=== PATIENT | female | born 1990 | race Caucasian/White ===

== ENCOUNTER 2022-12-03 17:20 | Outpatient (CLI) | payer BC, SELFPAY ==
[2022-12-03 21:19] LABS: Cholesterol* 180 mg/dL (90-199); Glucose* 75 mg/dL (60-115)
[2022-12-03 21:20] LABS: HDL Cholesterol* 80 mg/dL (>=50); LDL Cholesterol Calculated 86 mg/dL (<100); Triglycerides* 71 mg/dL (40-149)
== END 2022-12-03 17:21 | disposition home or self-care (01) ==
PROVIDERS: PCP Family Medicine; Visit Provider Registered Nurse
DX: Z01.419 Encounter for gynecological examination (general) (routine) without abnormal findings (principal); R00.2 Palpitations; Z13.1 Encounter for screening for diabetes mellitus; Z13.6 Encounter for screening for cardiovascular disorders
CPT/HCPCS: 80061; 82947; 84443

== ENCOUNTER 2023-07-08 12:53 | Outpatient (CLI) | payer BC, SELFPAY ==
--- NOTE | 2023-07-08 13:00 | CRLHL7_ITS ---
For Patients: As a result of the Cures Act, medical imaging exams and procedure reports are released immediately into your electronic medical record. You may view this report before your referring provider. If you have questions, please contact your health care provider. INDICATION: First trimester scan, establish dates. COMPARISON: None. TECHNIQUE: Real-time terrazas-scale imaging of the pelvis was performed. FINDINGS: Sonographic imaging demonstrates a single living intrauterine gestation. The embryo demonstrates a regular cardiac rate measuring 167 beats per minute. The embryo`s crown-rump length measurement of 2.8 cm corresponds to a gestational age of 9 weeks 4 days with a sonographic due date of 02/06/2024. There is a normal-appearing yolk sac. There are no gross abnormalities noted within the embryo at this early state of development. The gestational sac has a normal appearance. There is no evidence of a perigestational hemorrhage. The amount of fluid within the sac appears appropriate for gestational age. The cervix is closed. The myometrium appears normal. The ovaries are of normal size. There are no suspicious fluid collections noted in the cul-de-sac. IMPRESSION: Normal first trimester OB ultrasound exam. Gestational age calculated at 9 weeks 4 days with a sonographic due date of 02/06/2024. Dictated by Kodi Cummings MD @ 07/08/2023 1:46:14 PM (Electronically Signed)
== END 2023-07-08 12:54 | disposition home or self-care (01) ==
LOC: US 12:54
PROVIDERS: PCP Family Medicine; Visit Provider Registered Nurse
DX: Z34.91 Encounter for supervision of normal pregnancy, unspecified, first trimester (principal); Z3A.09 9 weeks gestation of pregnancy
CPT/HCPCS: 76817; 86703; 86803; 86850; 86900; 86901; 87086; 87340; 87491; 87591

== ENCOUNTER 2023-07-08 14:59 | Outpatient (CLI) | payer BC, SELFPAY | END 2023-07-08 15:00 | disposition home or self-care (01) | LOC: NFLDREF 07-10 09:01 | PROVIDERS: PCP Family Medicine; Referring Provider Family Medicine; Visit Provider Registered Nurse | DX: Z34.91 Encounter for supervision of normal pregnancy, unspecified, first trimester (principal) | CPT/HCPCS: 86592; 86703; 86762; 86787; 86803; 86850; 86900; 86901; 87086; 87340; 87491; 87591 ==

== ENCOUNTER 2023-09-30 14:01 | Outpatient (CLI) | payer BC, SELFPAY ==
--- NOTE | 2023-09-30 14:00 | CRLHL7_ITS ---
For Patients: As a result of the Century Cures Act, medical imaging exams and procedure reports are released immediately into your electronic medical record. You may view this report before your referring provider. If you have questions, please contact your health care provider. INDICATION: Evaluate anatomy. COMPARISON: 07/08/2023 TECHNIQUE: Real time terraazs scale imaging of the fetus was performed as well as color Doppler analysis of the umbilical vessels. FINDINGS: Sonographic imaging demonstrates a single living intrauterine gestation. Fetus demonstrates a regular cardiac rate of 155 beats per minute. Fetus has a longitudinal breech position. The placenta lies posteriorly without evidence of placenta previa. The edge of the placenta is located 6.6 cm from the internal cervical os. Amniotic fluid volume appears normal. Single deepest vertical pocket: 3.7 cm. The cervix is closed and measures 3.7 cm in length. The composite ultrasound gestational age is calculated at 22 weeks 0 days with an estimated sonographic due date of 02/03/2024. The estimated weight is 448 grams which lies at the 70th %. The following biometric measurements were obtained: Biparietal diameter: 5.3 cm/22 weeks 1 day 80th% Head circumference: 19.8 cm/22 weeks 0 days 71st% Abdominal circumference: 16.5 cm/21 weeks 4 days 52nd% Femur length: 3.7 cm/21 weeks 6 days 61st% The HC/AC ratio measures: 1.20 range (1.06-1.23) On anatomic survey, there is a normal appearance of the cerebral ventricles, cavum septi pellucidi, cisterna magna and cerebellum. The nose, lips, and facial profile appear normal. The cervical, thoracic and lumbar spine are well visualized and appear normal. There is a normal four-chamber heart view and the left and right ventricular outflow tracts appear normal. The diaphragm and stomach appear normal. The kidneys and bladder also appear normal. There is a normal three-vessel cord and cord insertion site. The four extremities appear normal. IMPRESSION: Normal OB ultrasound exam with concordance of clinical and sonographic dating. No intrinsic abnormalities noted on anatomic survey. Dictated by Kodi Cummings MD @ 10/02/2023 8:53:46 AM (Electronically Signed)
== END 2023-09-30 14:02 | disposition home or self-care (01) ==
LOC: US 14:02
PROVIDERS: PCP Family Medicine; Visit Provider Registered Nurse
DX: Z34.92 Encounter for supervision of normal pregnancy, unspecified, second trimester (principal); Z3A.22 22 weeks gestation of pregnancy
CPT/HCPCS: 76805

== ENCOUNTER 2023-11-18 10:03 | Outpatient (CLI) | payer BC, SELFPAY | END 2023-11-18 10:04 | disposition home or self-care (01) | LOC: NFLDREF 11-20 07:53 | PROVIDERS: PCP Family Medicine; Referring Provider Family Medicine; Visit Provider Obstetrics & Gynecology | DX: Z34.93 Encounter for supervision of normal pregnancy, unspecified, third trimester (principal); Z3A.28 28 weeks gestation of pregnancy | CPT/HCPCS: 86592 ==

== ENCOUNTER 2023-12-02 13:56 | Outpatient (CLI) | payer BC, SELFPAY ==
--- NOTE | 2023-12-02 13:59 | CRLHL7_ITS ---
For Patients: As a result of the Century Cures Act, medical imaging exams and procedure reports are released immediately into your electronic medical record. You may view this report before your referring provider. If you have questions, please contact your health care provider. INDICATION: Small for gestational age TECHNIQUE: Limited transabdominal two-dimensional terrazas-scale ultrasound examination. COMPARISON: 09/30/2023 and 07/08/2023 FINDINGS: There is a living fetus with gestational age of 30 weeks 2 days by LMP and 32 weeks 6 days by today`s measurements. EDC based on LMP is 02/08/2024. BPD: 8.4 cm, 33 weeks 6 days Head circumference: 29.9 cm, 33 weeks 1 day Abdominal circumference: 29.4 cm, 33 weeks 3 days Femur length: 6.0 cm, 31 weeks 1 day The weight is estimated at 2049 grams, greater than the 97th percentile. The heart rate is measured at 152 beats per minute and the rhythm appears regular. The amniotic fluid volume is within normal limits with single deepest pocket of 4.6 cm. The placenta is anterior and superior to the cervical os. There is no evidence of previa. IMPRESSION: 1. Living fetus with gestational age of 30 weeks 2 days by LMP and 32 weeks 6 days by today`s measurements. EDC based on LMP is 02/08/2024. 2. weight estimated at 2049 grams, greater than the 97th percentile. Dictated by Santos Ortiz MD @ 12/04/2023 1:14:26 PM (Electronically Signed)
== END 2023-12-02 13:57 | disposition home or self-care (01) ==
LOC: US 13:57
PROVIDERS: PCP Family Medicine; Visit Provider Obstetrics & Gynecology
DX: O36.5930 Maternal care for other known or suspected poor fetal growth, third trimester, not applicable or unspecified (principal); Z3A.30 30 weeks gestation of pregnancy
CPT/HCPCS: 76816

== ENCOUNTER 2024-01-12 11:00 | Outpatient (CLI) | payer BC, SELFPAY | END 2024-01-12 11:01 | disposition home or self-care (01) | LOC: NFLDREF 01-13 13:58 | PROVIDERS: PCP Family Medicine; Referring Provider Family Medicine; Visit Provider Obstetrics & Gynecology | DX: Z34.90 Encounter for supervision of normal pregnancy, unspecified, unspecified trimester (principal) | CPT/HCPCS: 76816; 87081; 87653 ==

== ENCOUNTER 2024-01-23 11:18 | Outpatient (CLI) | payer BC, SELFPAY ==
[2024-01-23 11:31] VITALS: PULSE 93; O2SAT 99
[2024-01-23 11:32] VITALS: BP 135/70; PULSE 103
[2024-01-23 11:34] VITALS: BP 115/58; PULSE 92
--- NOTE | 2024-01-23 14:48 | PC.OBNST ---
NST Note NST Note Start: 01/23/24 11:54 Freq: ONCE Status: Discharge Protocol: Document 01/23/24 14:47 [facility] (Rec: 01/23/24 14:48 [facility] [id number]) NST Note 4 Para (# of births) 2 EDC 02/12/24 Gestational Age In Weeks & Days 37 Weeks & 1 Days Patient Presented with Complaint(s) of Contractions/cramping Reactive Yes Appropriate for Gestational Age Yes ARA Saravia RN Date 01/23/24 Reactive Yes Appropriate for Gestational Age Yes ARA Duckworth RN Date 01/23/24 OB NST charge Yes Complete NST Note via Write Note Yes The provider's electronic signature indicates the NST is reactive/appropriate for gestational age. *Note to provider: If an addendum is required, open the patient's chart and click on the note under the Nurse/Allied Health tab.
== END 2024-01-23 14:20 | disposition home or self-care (01) ==
LOC: OB OUT 11:18 → OB 11:19
PROVIDERS: PCP Family Medicine; Visit Provider Obstetrics & Gynecology
DX: O47.1 False labor at or after 37 completed weeks of gestation (principal); Z3A.37 37 weeks gestation of pregnancy
CPT/HCPCS: 59025; G0463

== ENCOUNTER 2024-02-01 13:39 | Inpatient (IN) | payer BC, OTHER, SELFPAY ==
[2024-02-01] VITALS (52 sets, daily range): BP systolic 100–157; BP diastolic 51–112; PULSE 78–116; RESP 16; TEMP 36.8–37.6; O2SAT 98–100; BMI 25.4
--- NOTE | 2024-02-01 12:52 | W.PM.LDBA ---
Subjective History of Present Illness Narrative: Patient is being admitted to Labor and Delivery for early labor. She is a 33 year old -0-1-2 woman at 39 0/7 weeks' gestation. She was awakened by contractions throughout the night last night. These were strong but infrequent, and are currently around 10 minutes apart. She did vomit once, but is now hungry. Exam at presentation was / -1 per RN. Her full history and physical was dictated by Dr. Craft on 01/19/24. Please see this for details. Specific Issues/Plans G 4 P 2011 H&P done 01/19/[address] Craft : José Manuel [employer]!!!!! HISTORY OF FAST LABORS, WAS SENT HOME AT 4CM HAD TO COME BACK RIGHT AWAY, KEEP UNDER OBSERVATION LONGER!!! 1. History of benign heart murmur 2. Headaches: Recommend magnesium supplement and Reglan. 3. 3rd degree laceration with second baby 03/07/22 4. Suspected macrosomia. Requests elective IOL if no labor by 39 weeks. -Measuring smaller than dates (she hides this baby very well) -Growth ultrasound at 30 weeks: EFW >97%tile!!!, AC>97%tile, BPD >97%tile -Growth ultrasound at 36 weeks: EFW 3503 g = 97%, BPD and AC > 97%, HC 96%, FL 17%. Cephalic, SDP 3.4. 5. Anemia -10.6 > 10.9 on 12/16 after iron. Encouraged continued use, I would not advise iron infusion at this time COVID: Vaccinated and boosted, not current with booster at this point. Recommended. Flu Vaccine: Declined 08-26-23 RSV:declines tdap: declines Covid infection: 11/09/23 OB - Problem Based A/P Additional Plan (1) Anemia affecting : Status: Acute (2) : Status: Acute Plan: Early labor at 39 weeks, 0 days gestation. History of rapid labor. Suspected macrosomia. Plan Patient requests epidural for pain control. Otherwise expectant management. Anticipate . Delivery/Labor/Induction Plan Plan: expectant management OB Result Labs GBS Status: negative OB Exam Physical Exam Vital signs: Temp Pulse Resp BP Pulse Ox 98.3 F 86 16 120/74 98 02/01/24 11:19 03/10/24 11:19 02/01/24 11:19 02/01/24 11:19 02/01/24 11:16 Narrative: Physical exam: General: No acute distress Psych: Alert and oriented x3, full affect HEENT: Normocephalic, atraumatic Heart: Regular rate and rhythm, no murmur rub or gallop Lungs: Clear to auscultation bilaterally Abdomen: Soft, nontender, gravid, cephalic lie Lower extremities: No edema or erythema Pelvic exam: Cervical exam per rn at time of 1st evaluation is 3, 70%, and-1 station. Repeat exam now is 5-6 / 95 / +2, bulging bag. tracing: Baseline 135, accelerations present, no decelerations, moderate variability.
[2024-02-01] MEDS: LACTATED RINGERS 1000 ML 1,000 ML 1200 ML IV ×2 (13:50→14:43)
[2024-02-01 13:58] LABS: Basophils Percent Auto 0.3 % (0.0-3.0); Eosinophils Percent Auto 0.2 % (0.0-7.0); Hemoglobin* 12.4 gm/dL (12.0-16.0); Immature Granulocytes Pct Auto 0.1 %; Lymphocytes Percent Auto 10.6 % (20-44); Mean Corpuscular HGB Conc 34 gm/dL (32-36); Mean Corpuscular Hemoglobin 28 pg (26-34); Mean Corpuscular Volume 84 fL (80-100); Monocytes Percent Auto 4.2 % (0.0-11.0); Neutrophils Percent Auto 84.6 % (42.0-72.0); Platelet Count* 181 K/uL (140-440); RDW Coefficient of Variation % 13.2 % (11.5-15.5); Red Blood Count 4.41 m/uL (4.00-5.20); White Blood Count* 13.73 K/uL (4.50-11.00)
[2024-02-01 14:08] LABS: Slide Review Reflex No
[2024-02-01] MEDS: ROPIVACAINE 0.2% 100 ml 100 ML 12 MG EPIDURAL (14:40)
[2024-02-01] MEDS: LIDOCAINE 2% (PF) 5 ML VIAL EPIDURAL (14:40)
--- NOTE | 2024-02-01 14:45 | P.ANBPRC_ITS ---
[facility] Medical History Spontaneous vaginal delivery ?O80 - Encounter for full-term uncomplicated delivery (ICD-10) Functional heart murmur ?R01.0 - Benign and innocent cardiac murmurs (ICD-10) Dyspareunia due to non-psychogenic cause in female ?N94.10 - Unspecified dyspareunia (ICD-10) Surgical History History of colposcopy with cervical biopsy (05/18/18) ?Z98.890 - Other specified postprocedural states (ICD-10) Family History Maternal Grandmother Breast cancer Depression Mother Depression Diabetes Miscarriage High blood pressure Sister Depression Brother GERD (gastroesophageal reflux disease) Father High blood pressure Paternal Grandfather High blood pressure Myocardial infarction Maternal Grandfather Lymphoma Cancer of mouth Diabetes Depression Uncle Cancer of liver Throat cancer Social History What is your current living situation?: I presently have a place to live Problems where you live: no known problems In the past 12 months, utilities in danger of being shut off: no In past 12 months, lack of transportation kept you from medical appts, meetings, work, or getting things needed for daily living: no In the past 12 mos, have been you worried that your food would run out before you had money to buy more?: never true In the past 12 mos, the food you bought just didn't last and you didn't have money to buy more?: never true Smoking Status: Never smoker How often does anyone, including family, friends and others, physically hurt you : never How often does anyone, including family, friends and others, insult or talk down to you: never How often does anyone, including family, friends and others, threaten you with harm: never How often does anyone, including family, friends and others, scream or curse at you: never Little interest or pleasure in doing things: not at all Feeling down, depressed, or hopeless: not at all Meds Home Medications and Allergies Home Medications Medication Instructions Recorded Confirmed Type Ejnhg-Vaptdv-Wxt-Rktts-Yjllk-xqgebjjk 1 cap PO DAILY 12/03/22 02/01/24 History 40 billion cell-[address] (MVW Complete Formulation Probiotic) prenat.vits,andrey,vby-ypem-dtkwb 1 tab PO QDAY 12/03/22 02/01/24 History acetaminophen 500 mg tablet 1,000 mg PO Q6H PRN 08/05/23 02/01/24 History (Tylenol Extra Strength) multivitamin with iron (Daily 1 tab PO QDAY 12/02/23 02/01/24 History Vitamin with Iron tablet) famotidine 10 mg tablet (Pepcid AC) 10 mg PO QDAY 12/16/23 02/01/24 History Allergies Allergy/AdvReac Type Severity Reaction Status Date / Time No Known Drug Allergies Allergy Verified 02/01/24 11:32 Results Labs Labs: Laboratory Results - last 24 hr 02/01/24 13:45 WBC 13.73 H RBC 4.41 Hgb 12.4 Hct 37.0 MCV 84 MCH 28 MCHC 34 RDW Coeff of [place] 13.2 Plt Count 181 Neut % (Auto) 84.6 H Lymph % (Auto) 10.6 L [place] % (Auto) 4.2 Eos % (Auto) 0.2 Baso % (Auto) 0.3 Neut # (Auto) 11.60 H Lymph # (Auto) 1.50 [place] # (Auto) 0.60 Eos # (Auto) 0.00 Baso # (Auto) 0.00 Abs Immat Gran (auto) 0.00 Imm/Tot Granulo (auto) 0.1 Vital Signs Vital Signs: Last Vital Signs Temp 98.3 F 02/01/24 13:34 Pulse 85 02/01/24 14:42 Resp 16 02/01/24 13:34 BP 115/59 L 02/01/24 14:42 Pulse Ox 100 02/01/24 14:34 Anesthesia Procedures Epidural Insertion Patient Location: OB Start Time: 14:00 Stop Time: 14:30 Start Date: 02/01/24 Stop Date: 02/01/24 Reason for Block: procedure for pain Patient Position: sitting Performed By: Felix Bautista Preanesthetic Checklist: IV checked, risks and benefits discussed, monitors and equipment checked, pre-op evaluation, timeout performed and anesthesia consent Prep: chlorhexidine gluconate Monitoring: blood pressure monitoring, continuous pulse oximetry and heart rate Approach: midline Vertebral Space: lumbar (1-5) Epidural Technique: GABRIELA saline Needle Type: Tuohy needle Injection Technique: continuous catheter Needle gauge: 17 Needle Length (cm): 10 cm Needle Insertion Depth (cm): 6 Catheter Gauge: 19 Catheter Type: multi-orifice Catheter at skin depth (cm): 12 Test Dose Result: negative and lidocaine 1.5% with epinephrine 1 to 200,000
[2024-02-01] MEDS: LACTATED RINGERS 1000 ML 1,000 ML 125 ML IV (15:25)
--- NOTE | 2024-02-01 15:59 | PM.OBPNL ---
Subjective Time Seen by Provider: 03:55 Date Seen: 02/01/24 Narrative: Elizabeth is a 33 yo V4B9-1-3-3 woman at 39 0/7 weeks' gestation who presented in labor. She had an epidural since our last exam. She is comfortable. Occasionally feels pelvic pressure. Objective Exam: Gen - NAD Cervical exam - 6.5 / 100 / +2 SROM on exam, clear fluid Vital Signs: Last Vital Signs Temp 98.3 F 02/01/24 13:34 Pulse 102 H 02/01/24 15:55 Resp 16 02/01/24 13:34 BP 109/59 L 02/01/24 15:55 Pulse Ox 100 02/01/24 14:34 Comments: tracing: Baseline 135 / accelerations present / isolated late deceleration and intermittent brief variable decelerations / moderate variability. Contractions Contraction Frequency: Q3-4 min Assessment Assessment: active labor Amniotic Membrane Status: SROM Status: Category ll Tracing Comments: Overall reassuring Labor Progress: Active labor Maternal Status: Stable Plan Plan: Expectant management. Anticipate .
[2024-02-01] MEDS: OXYTOCIN 30 unit/500 ML in NS 30 UNIT/500 ML BAG 325 UNIT IVPB (16:42)
--- NOTE | 2024-02-01 16:43 | W.PM.VAGDEL1 ---
Procedure Procedure Done: [facility] Procedure Details: The patient is a 33 year-old G 4 P 2-0-1-2 woman admitted on 02/01/2024 at 39 Weeks, 0 Days gestation for labor.? Cervical exam on admission was 3 cm/7 % effaced/-1 station with membranes intact in vertex presentation.? Contractions were every 10 minutes.? heart rate demonstrated baseline 135 bpm with moderate variability, positive accelerations, no decelerations; a category 1 tracing.? ? Labor Analgesia:? Epidural ? Pitocin:? No ? Labor onset:? 1:31 PM SROM occurred at 3:56 PM with clear fluid. ? Complete:? 4:25 p.m. ? Pushing:? 4:27 p.m. ? heart tones during second stage were reassuring. ? At 4:28 p.m. a viable female delivered in vertex OA presentation over small second-degree perineal laceration via spontaneous vaginal delivery.? Elizabeth pushed over the course of only 1 contraction. was placed on maternal abdomen.? Cord was clamped and cut after it ceased to pulse.? Nose and mouth were bulb suctioned.? weight pending.? 8 at 1 minute and 8 at 5 minutes.? Shoulder dystocia: No.? Nuchal cord: No. ? Placenta delivered spontaneously and complete at 4:32 p.m. with a 3 vessel cord. ? Mother was stable after delivery. required CPAP initially. ? Lacerations:? Small second-degree perineal laceration, repaired with running suture of 3-0 Vicryl. ? Blood loss: 100 mL. Blood loss measurement type: QBL ? Sponge and needles counts are correct.
[2024-02-01] MEDS: NIFEdipine 30 MG TAB.ER.24 PO (19:32)
[2024-02-01 19:37] LABS: Hemoglobin* 12.2 gm/dL (12.0-16.0); Mean Corpuscular HGB Conc 33 gm/dL (32-36); Mean Corpuscular Hemoglobin 28 pg (26-34); Mean Corpuscular Volume 86 fL (80-100); Platelet Count* 177 K/uL (140-440); Red Blood Count 4.33 m/uL (4.00-5.20); White Blood Count* 17.06 K/uL (4.50-11.00)
[2024-02-01 19:44] LABS: Slide Review Reflex No
[2024-02-01 19:52] LABS: Alanine Aminotransferase* 16 U/L (4-35); Aspartate Amino Transferase* 22 U/L (12-35); Blood Urea Nitrogen* 10 mg/dL (5-24); Creatinine* 0.5 mg/dL (0.5-1.5); Est. Creatinine Clearance* 159.93; Estimated Glomerular Filt Rate 126 ml/min
[2024-02-02 00:31] VITALS: BP 121/64; PULSE 82; RESP 16; TEMP 36.7; O2SAT 96
[2024-02-02 03:50] VITALS: BP 112/68; PULSE 88; RESP 16; TEMP 36.6; O2SAT 97
[2024-02-02 05:57] LABS: Hematocrit 36.9 % (33.0-51.0); Hemoglobin* 12.1 gm/dL (12.0-16.0); Mean Corpuscular HGB Conc 33 gm/dL (32-36); Mean Corpuscular Hemoglobin 28 pg (26-34); Mean Corpuscular Volume 85 fL (80-100); Platelet Count* 161 K/uL (140-440); Red Blood Count 4.35 m/uL (4.00-5.20); White Blood Count* 14.31 K/uL (4.50-11.00)
[2024-02-02 05:59] LABS: Slide Review Reflex No
[2024-02-02 06:11] LABS: Creatinine* 0.4 mg/dL (0.5-1.5); Est. Creatinine Clearance* 199.91; Estimated Glomerular Filt Rate 133 ml/min
[2024-02-02 06:12] LABS: Alanine Aminotransferase* 15 U/L (4-35); Aspartate Amino Transferase* 23 U/L (12-35); Blood Urea Nitrogen* 7 mg/dL (5-24)
[2024-02-02] MEDS: ACETAMINOPHEN 500 MG TABLET 1000 MG PO (07:29)
[2024-02-02 07:33] VITALS: BP 122/71; PULSE 83; RESP 12; TEMP 36.3
--- NOTE | 2024-02-02 07:52 | PM.OBDSVD1 ---
DS: Providers Provider Date Seen: 02/02/24 Date of admission: 02/01/24 13:39 Primary care physician: Lian Faust DO Admitting Clinician: Juli Jimenez MD Attending Physician on discharge: Juli Jimenez MD Date of Discharge: 02/02/24 DS: Diagnosis Discharge Diagnosis (1) Lactating mother: Status: Acute (2) care following vaginal delivery: Status: Acute (3) Gestational hypertension with significant proteinuria, delivered: Status: Acute Exam Narrative: Exam Narrative: GENERAL APPEARANCE:? normal affect, alert, no distress? MOOD:? appropriate? CHEST:? clear to auscultation and percussion? HEART:? regular rate and rhythm? ABDOMEN:? soft, non-tender the uterine fundus is U/2 and is appropriate for the stage of recovery.? PERINEUM:? mild edema of the perineum, there is a 2nd degree laceration that is healing well.? EXTREMITIES:? normal and no edema? Patient has no complaints? No active bleeding?? Doing well? She is requesting discharge home.? Const: Vital Signs, click to edit/add: Vital Signs - 24 hr 02/01/24 11:16 02/01/24 11:19 02/01/24 13:34 Temperature 98.3 F 98.3 F Pulse Rate 86 95 Pulse Rate [Pulse Oximeter] Respiratory Rate 16 16 Blood Pressure 120/74 148/76 H Blood Pressure [Ri ght Arm] Pulse Oximetry 98 Oxygen Delivery Me thod 02/01/24 13:50 02/01/24 14:04 02/01/24 14:09 Temperature Pulse Rate 99 Pulse Rate [Pulse Oximeter] Respiratory Rate Blood Pressure 135/77 Blood Pressure [Ri ght Arm] Pulse Oximetry 100 100 Oxygen Delivery Me thod 02/01/24 14:12 02/01/24 14:14 02/01/24 14:16 Temperature Pulse Rate 88 86 96 Pulse Rate [Pulse Oximeter] Respiratory Rate Blood Pressure 122/67 122/67 118/64 Blood Pressure [Ri ght Arm] Pulse Oximetry 100 Oxygen Delivery Me thod 02/01/24 14:18 02/01/24 14:19 02/01/24 14:20 Temperature Pulse Rate 97 96 Pulse Rate [Pulse Oximeter] Respiratory Rate Blood Pressure 126/68 125/65 Blood Pressure [Ri ght Arm] Pulse Oximetry 100 Oxygen Delivery Me thod 02/01/24 14:22 02/01/24 14:24 02/01/24 14:26 Temperature Pulse Rate 100 85 109 H Pulse Rate [Pulse Oximeter] Respiratory Rate Blood Pressure 125/62 118/57 L 114/57 L Blood Pressure [Ri ght Arm] Pulse Oximetry 100 Oxygen Delivery Nd thod 02/01/24 14:28 02/01/24 14:29 02/01/24 14:30 Temperature Pulse Rate 103 H 100 Pulse Rate [Pulse Oximeter] Respiratory Rate Blood Pressure 112/59 L 103/55 L Blood Pressure [Ri ght Arm] Pulse Oximetry 100 Oxygen Delivery Nd thod 02/01/24 14:32 02/01/24 14:34 02/01/24 14:36 Temperature Pulse Rate 79 93 86 Pulse Rate [Pulse Oximeter] Respiratory Rate Blood Pressure 109/62 100/51 L 113/57 L Blood Pressure [Ri ght Arm] Pulse Oximetry 100 Oxygen Delivery Nd thod 02/01/24 14:38 02/01/24 14:40 02/01/24 14:42 Temperature Pulse Rate 85 81 85 Pulse Rate [Pulse Oximeter] Respiratory Rate Blood Pressure 117/58 L 114/60 115/59 L Blood Pressure [Ri ght Arm] Pulse Oximetry Oxygen Delivery Nd thod 02/01/24 14:44 02/01/24 14:49 02/01/24 14:55 Temperature 98.4 F Pulse Rate 89 86 Pulse Rate [Pulse Oximeter] Respiratory Rate 16 Blood Pressure 125/58 L 116/56 L Blood Pressure [Ri ght Arm] Pulse Oximetry Oxygen Delivery Nd thod 02/01/24 14:59 02/01/24 15:04 02/01/24 15:09 Temperature Pulse Rate 89 88 85 Pulse Rate [Pulse Oximeter] Respiratory Rate Blood Pressure 124/59 L 108/51 L 108/52 L Blood Pressure [Ri ght Arm] Pulse Oximetry Oxygen Delivery Nd thod 02/01/24 15:14 02/01/24 15:20 02/01/24 15:24 Temperature Pulse Rate 86 79 86 Pulse Rate [Pulse Oximeter] Respiratory Rate Blood Pressure 104/51 L 116/59 L 108/56 L Blood Pressure [Ri ght Arm] Pulse Oximetry Oxygen Delivery Nd thod 02/01/24 15:40 02/01/24 15:55 02/01/24 16:18 Temperature 98.4 F Pulse Rate 78 102 H 90 Pulse Rate [Pulse Oximeter] Respiratory Rate 16 Blood Pressure 105/54 L 109/59 L 115/59 L Blood Pressure [Ri ght Arm] Pulse Oximetry Oxygen Delivery Nd thod 02/01/24 16:25 02/01/24 16:40 02/01/24 16:40 Temperature Pulse Rate 109 H 88 Pulse Rate [Pulse Oximeter] Respiratory Rate 16 Blood Pressure 128/60 129/63 Blood Pressure [Ri ght Arm] Pulse Oximetry Oxygen Delivery Nd thod 02/01/24 16:55 02/01/24 16:55 02/01/24 17:10 Temperature Pulse Rate 112 H 97 Pulse Rate [Pulse Oximeter] Respiratory Rate 16 Blood Pressure 126/66 131/69 Blood Pressure [Ri ght Arm] Pulse Oximetry Oxygen Delivery Nd thod 02/01/24 17:10 02/01/24 17:25 02/01/24 17:25 Temperature 99.6 F Pulse Rate 101 H Pulse Rate [Pulse Oximeter] Respiratory Rate 16 16 Blood Pressure 137/81 Blood Pressure [Ri ght Arm] Pulse Oximetry Oxygen Delivery Nd thod 02/01/24 17:40 02/01/24 17:40 02/01/24 17:55 Temperature Pulse Rate 108 H 96 Pulse Rate [Pulse Oximeter] Respiratory Rate 16 Blood Pressure 150/80 H 134/63 Blood Pressure [Ri ght Arm] Pulse Oximetry Oxygen Delivery Nd thod 02/01/24 17:55 02/01/24 18:10 02/01/24 18:10 Temperature Pulse Rate 93 Pulse Rate [Pulse Oximeter] Respiratory Rate 16 16 Blood Pressure 132/75 Blood Pressure [Ri ght Arm] Pulse Oximetry Oxygen Delivery Nd thod 02/01/24 18:25 02/01/24 18:25 02/01/24 18:40 Temperature 98.8 F Pulse Rate 96 102 H Pulse Rate [Pulse Oximeter] Respiratory Rate 16 Blood Pressure 132/64 157/112 H Blood Pressure [Ri ght Arm] Pulse Oximetry Oxygen Delivery Nd thod 02/01/24 18:40 02/01/24 18:55 02/01/24 18:55 Temperature Pulse Rate 107 H Pulse Rate [Pulse Oximeter] Respiratory Rate 16 16 Blood Pressure 154/68 H Blood Pressure [Ri ght Arm] Pulse Oximetry Oxygen Delivery Me thod 02/01/24 19:10 02/01/24 19:10 02/01/24 19:32 Temperature Pulse Rate 116 H 106 H Pulse Rate [Pulse Oximeter] Respiratory Rate 16 Blood Pressure 154/68 H 126/58 L Blood Pressure [Ri ght Arm] Pulse Oximetry Oxygen Delivery Me thod 02/01/24 19:40 02/01/24 19:55 02/01/24 19:58 Temperature 98.8 F Pulse Rate 112 H 106 H Pulse Rate [Pulse Oximeter] 106 H Respiratory Rate 16 Blood Pressure 135/66 122/56 L Blood Pressure [Ri ght Arm] 122/56 L Pulse Oximetry Oxygen Delivery Me thod Room Air 02/02/24 00:31 02/02/24 03:50 02/02/24 07:33 Temperature 98.0 F 97.8 F 97.3 F L Pulse Rate Pulse Rate [Pulse Oximeter] 82 88 83 Respiratory Rate 16 16 12 Blood Pressure Blood Pressure [Ri ght Arm] 121/64 112/68 122/71 Pulse Oximetry 96 97 Oxygen Delivery Me thod Room Air Room Air OB - DS: Summary Hospital Course Hospital Course: The patient is a 33 year old G 4 P 3 at 39.0 weeks gestation that was admitted to the Center on 02/01/24 for active labor. She had an uncomplicated vaginal delivery. She delivered a viable female infant. She is breast feeding and states that it is going good. the patient has done well. The patient feels well.? The pain is well controlled with current medications.? She has no new complaints.? Urinary output is adequate and she is voiding without difficulty.? Has a good appetite, is tolerating a general diet, is passing flatus, and has not had a bowel movement.? Has scant amount of rubra lochia.? She is ambulating well.?She is planning condoms and natural family planning and they are considering a partner vasectomy in the future. Her blood pressures and labs have been normal. She is aware of the signs of preeclampsia and has access to a blood pressure cuff at home. Reviewed increased risk of readmission with early discharge but she is still requesting a discharge after 24 hours. Peripartum Data delivery method: Vaginal Laceration description: Perineal - 2nd Degree Episiotomy description: None complications: none [place] Gender: Female Infant Discharge Plan: Home Status at Discharge Functional status at discharge: independent ambulation Overall status at discharge: patient is progressing back to baseline Time Spent with Patient Time attestation: Total time spent providing and/or coordinating discharge services: Discharge Plan Discharge Disposition: Home, Self-Care Date of Admission: 02/01/24 13:39 Attending Provider on Discharge: Randi Zurita Primary Care Provider: Lian Faust Condition: Stable Anticipated Discharge Date/Time: 02/02/24 18:00 Discharge Medications: New docusate sodium 100 mg Capsule 100 mg PO DAILY Qty: 90 0RF Rx Instructions: Take 1-2 tablets daily as needed for constipation. ibuprofen 600 mg Tablet 600 mg PO Q6H PRNQty: 20 0RF Continued acetaminophen [Tylenol Extra Strength] 500 mg tablet 1,000 mg PO Q6H PRN Hold Instructions: not needed fluconazole 150 mg tablet 150 mg PO ONCE Qty: 1 0RF Rx Instructions: as a single dose prenat.vits,andrey,[id number] Tablet 1 tab PO QDAY MVW Complete Formul Probiotic 40 billion cell -15 mg capsule,delayed release(DR/EC) 1 cap PO DAILY multivitamin with iron [Daily Vitamin with Iron] Tablet 1 tab PO QDAY Hold Instructions: taking famotidine [Pepcid AC] 10 mg tablet 10 mg PO QDAY Discharge Orders: Discharge Order (Routine); Ordered 02/02/24 Ordered By: Randi Zurita Patient Education: OB Vaginal/Breast Feeding Additional Instructions: Discharge instructions were reviewed with the patient including signs and symptoms of infection and home going medications.? Lifting Restrictions: 20 pounds for 6? weeks? ?? Do not drive while taking narcotic pain meds.? Off Work or School for 6 weeks.? ?? Symptoms to report to doctor:? -Bleeding that saturates more than one pad per hour? -Passing clots larger than the size of a golf ball? -Pain not relieved by prescribed medication? -Fever above 100.4 degrees Fahrenheit? -A foul vaginal odor? -Difficulty in emotions, mood and functions? -Thoughts of hurting yourself and/or ? -Painful, reddened area in your breast? -Any drainage, redness or tenderness in your IV/epidural site? -Severe headache that doesn't improve after taking medications? -Changes in vision, including temporary loss of vision, blurred vision, and/or light sensitivity? -Upper abdominal pain (usually under ribs on the right side)? -Decrease in urination or painful, frequent urinating? -Chest pain? -Shortness of breath? -Tenderness or pain with redness and/swelling in the calf(s) of your leg? ?? Follow Up in clinic in 2 and 6 weeks.? ?? consultation services are available to all mothers and babies for the first year after delivery.? To make an appointment, please call [phone].? Follow Up Appointments: [facility] [Provider Group] Lian Faust DO [Primary Care Provider] - Forms: MyHealth Info Instructions
--- NOTE | 2024-02-02 09:35 | PM.ANPOST ---
Post Anesthesia Note Post Anesthesia Note Patient seen: Inpatient Respiratory Status: adequate Cardiovascular Status: adequate Mental Status: baseline Pain: adequate Temp: baseline Anesthetic awareness: N/A Complications: none Follow care: none
[2024-02-02] MEDS: DOCUSATE SODIUM 100 MG CAPSULE PO (10:14)
[2024-02-02 12:16] VITALS: BP 110/68; PULSE 83; RESP 12; TEMP 36.4
[2024-02-02] MEDS: IBUPROFEN 600 MG TABLET PO (12:24)
[2024-02-03 16:34] LABS: Rapid Plasma Reagin (RPR) Non Reactive (Non Reactive)
== END 2024-02-02 18:00 | disposition home or self-care (01) | DRG 560 ==
LOC: OB 20:27
PROVIDERS: Admitting Provider Obstetrics & Gynecology; PCP Family Medicine; Visit Provider Obstetrics & Gynecology
DX: O99.02 Anemia complicating childbirth (principal); D64.9 Anemia, unspecified; O70.1 Second degree perineal laceration during delivery; O13.4 Gestational [pregnancy-induced] hypertension without significant proteinuria, complicating childbirth; Z37.0 Single live birth; Z3A.39 39 weeks gestation of pregnancy
CPT/HCPCS: 01967; 36415; 82565; 84450; 84460; 84520; 85018; 85025; 85027; 86592; 86850; 86900; 86901; G0463; A9270; J2371; J2795; J7120

== ENCOUNTER 2025-01-25 16:04 | Outpatient (CLI) | payer BC, OTHER, SELFPAY | END 2025-01-25 16:05 | disposition home or self-care (01) | LOC: NFLDREF 16:05 | PROVIDERS: PCP Family Medicine; Visit Provider Registered Nurse | DX: D64.9 Anemia, unspecified (principal); N92.6 Irregular menstruation, unspecified; L29.2 Pruritus vulvae | CPT/HCPCS: 82728; 83540; 83550; 84443 ==

== ENCOUNTER 2025-05-03 09:03 | Outpatient (CLI) | payer BC, OTHER, SELFPAY ==
--- NOTE | 2025-05-03 09:15 | CRLHL7_ITS ---
For Patients: As a result of the Cures Act, medical imaging exams and procedure reports are released immediately into your electronic medical record. You may view this report before your referring provider. If you have questions, please contact your health care provider. OB ULTRASOUND LESS THAN 14 WEEKS, 05/03/2025 CLINICAL HISTORY: Dating and viability. COMPARISON: None. TECHNIQUE: Ultrasound OB pelvis transvaginal. Transvaginal US was done to better visualize the endometrium and ovaries. Real-time grayscale imaging of the pelvis was performed.? FINDINGS: LMP: 03/07/2025. MAYRA by LMP: 12/12/2025. GA: 8 weeks 1 day. CRL: 2.0 cm, 8 weeks 4 days. MAYRA 12/09/2025 FHR: 163 bpm GEST SAC: 3.8 cm, appears WNL YOLK SAC: 3.8 mm, appears WNL RIGHT OV: N/V LEFT OV: WNL 3.1 x 1.8 x 2.3 cm IMPRESSION: Single living intrauterine measuring 8 weeks 4 days and sonographic due date 12/09/2025. Kodi Cummings M.D. Diagnostic Radiologist [email or web address] Transcribed: 10:35 am DW/Dictated by: Kodi Cummings MD @ 05/03/2025 10:05:00 AM (Electronically Signed)
== END 2025-05-03 09:04 | disposition home or self-care (01) ==
LOC: US 09:04
PROVIDERS: PCP Family Medicine; Visit Provider Physician Assistant
DX: Z34.91 Encounter for supervision of normal pregnancy, unspecified, first trimester (principal); Z3A.08 8 weeks gestation of pregnancy
CPT/HCPCS: 76817; 83021; 86592; 86703; 86704; 86706; 86762; 86787; 86803; 86850; 87086; 87340; 87491; 87591

== ENCOUNTER 2025-09-14 15:12 | Outpatient (CLI) | payer BC, OTHER, SELFPAY | END 2025-09-14 15:13 | disposition home or self-care (01) | LOC: NFLDREF 09-17 17:09 | PROVIDERS: PCP Family Medicine; Referring Provider Family Medicine; Visit Provider Obstetrics & Gynecology | DX: Z34.92 Encounter for supervision of normal pregnancy, unspecified, second trimester (principal) | CPT/HCPCS: 86592 ==

== ENCOUNTER 2025-11-08 15:49 | Outpatient (CLI) | payer BC, OTHER, SELFPAY ==
[2025-11-09 14:57] LABS: Strep B DNA Probe Negative (Negative)
[2025-11-09 15:00] LABS: Strep B Susceptibility Needed? No
== END 2025-11-08 15:50 | disposition home or self-care (01) ==
LOC: NFLDREF 15:49
PROVIDERS: PCP Family Medicine; Visit Provider Obstetrics & Gynecology
DX: Z34.90 Encounter for supervision of normal pregnancy, unspecified, unspecified trimester (principal)
CPT/HCPCS: 87081; 87653

== ENCOUNTER 2025-11-21 15:16 | Outpatient (CLI) | payer BC, OTHER, SELFPAY ==
--- NOTE | 2025-11-21 15:45 | CRLHL7_ITS ---
For Patients: As a result of the Century Cures Act, medical imaging exams and procedure reports are released immediately into your electronic medical record. You may view this report before your referring provider. If you have questions, please contact your health care provider. OB ULTRASOUND, 11/21/2025 MAYRA by LMP: 12/12/2025. GA: 37 w, 0 d. INDICATION: Uterine size date discrepancy. TECHNIQUE: Real time terrazas scale imaging of the fetus was performed. Transabdominal. COMPARISON: US 07/11/2025. ([facility]) position: Vertex. Cervix: Not visualized. Placenta/cord: Posterior. Technique: Transabdominal. Amniotic Fluid: 11.9 cm EDY 5.4 cm SDP (greater than/equal to: 2- less than 8 cm). BPD: 10.0 cm. 39 w, 3 d, >97 percent. HC: 34.2 cm. 39 w, 3 d, 80.1 percent. AC: 33.1 cm. 37 w, 0 d, 65.2 percent. FL: 7.2 cm. 37 w, 0 d, 50.7 percent. FL/AC ratio: 21.9 percent. HC/AC ratio: 1.0. heart rate: 131 bpm. age by this US: 38 w, 2 d. MAYRA by this US: 12/03/2025. EFW: 3252 g. Weight: 7 lbs, 3 oz. Percentile by MAYRA: 72.0 percent. IMPRESSION: 1. Sonographic gestational age 38 weeks 2 days and sonographic due date 12/03/2025. Sonographic age is 9 days ahead of the clinical age. 2. Estimated weight 72nd percentile. Abdominal circumference 65th percentile. BPD greater than 97th percentile. 3. Amniotic fluid single deepest pocket 5.4 cm. EDY 11.9 cm. Kodi Cummings M.D. Diagnostic Radiologist [email or web address] TELLY/ange JR/Dictated by: Kodi Cummings MD @ 11/22/2025 6:38:00 AM (Electronically Signed)
== END 2025-11-21 15:17 | disposition home or self-care (01) ==
LOC: US 15:17
PROVIDERS: PCP Family Medicine; Visit Provider Obstetrics & Gynecology
DX: O36.63X0 Maternal care for excessive fetal growth, third trimester, not applicable or unspecified (principal); Z3A.37 37 weeks gestation of pregnancy
CPT/HCPCS: 76816